=== PATIENT | female | born 1995 | race Caucasian/White ===

== ENCOUNTER 2020-12-16 19:47 | Inpatient (IN) | payer MEDICAID ==
[~2020-12-16] VITALS: Ht 170.2 cm; Wt 67.1 kg
[2020-12-16 19:49] VITALS: BP 98/56
--- NOTE | 2020-12-16 19:52 | NUR ---
to lobby a/w bed ambulatory
[2020-12-16 20:37] LABS: BASOPHILS % (AUTO) 0.1 % (0.0-2.0); EOSINOPHILS % (AUTO) 0.1 % (0.0-4.0); HEMATOCRIT 39.4 % (36-48); HEMOGLOBIN 13.6 g/dL (12.0-16.0); LYMPHOCYTES # (AUTO) 1.3 K/uL (2.5-16.5); LYMPHOCYTES % (AUTO) 12.7 % (20.5-51.1); MEAN CORPUSCULAR HEMOGLOBIN 31 pg (27-31); MEAN CORPUSCULAR HGB CONC 35 g/dL (33-37); MEAN CORPUSCULAR VOLUME 89.3 fL (80-94); MONOCYTES # (AUTO) 0.5 K/uL (0.8-1.0); NEUTROPHILS # (AUTO) 8.7 K/uL (1.8-7.7); NEUTROPHILS % (AUTO) 82.1 % (42.2-75.2); PLATELET COUNT (AUTO) 271 K/uL (140-450); RED BLOOD CELL COUNT(AUTO) 4.42 MIL/uL (4.20-5.40); RED CELL DISTRIBUTION WIDTH 13.5 % (11.6-13.7); WHITE BLOOD COUNT (AUTO) 10.6 K/uL (4.8-10.8)
[2020-12-16 20:50] LABS: ALBUMIN 3.7 g/dL (3.4-5.0); ANION GAP 12.4 (8-16); CARBON DIOXIDE 21.8 mmol/L (21-32); CREATININE 1.4 mg/dL (0.6-1.3); TOTAL BILIRUBIN 0.3 mg/dL (0.0-1.0)
[2020-12-16 20:54] LABS: POTASSIUM 7.2 mmol/L (3.5-5.1)
--- NOTE | 2020-12-16 21:01 | NUR ---
PT AMBULATED TO BED 4
--- NOTE | 2020-12-16 21:02 | NUR ---
patient complains of dizziness for 3 days, with n/v- patient vomited once. patient has had an issue with pottasium being high and low before. Patient also has weakness throughout the body, +ROM. Patient has not been able to get medicine due to recently moving. AAOx4. pmh: hypothyroidism, addisons disease NKA
[2020-12-16] MEDS ORDERED: DEXTROSE 50% 50 ML SYR IVP ONE (21:20)
[2020-12-16] MEDS ORDERED: ALBUTEROL 0.083% 2.5 MG/3 ML NEBU INH ONE (21:20)
[2020-12-16] MEDS ORDERED: CALCIUM GLUCONATE 10% 1000 MG/10 ML VIAL IVP ONE (21:20)
[2020-12-16] MEDS ORDERED: INSULIN REGULAR, HUMAN 100 UNIT/ML VIAL IVP ONE (21:20)
[2020-12-16] MEDS ORDERED: HYDROCORTISONE NA SUCC 100 MG/2 ML VIAL IV ONE (21:40)
--- NOTE | 2020-12-16 21:40 | NUR ---
RT AT BEDSIDE
[2020-12-16] MEDS ORDERED: CALCIUM CHLORIDE 10% 100 MG/ML SYR IVP ONE (22:25)
[2020-12-16] MEDS ORDERED: HYDROcodone/APAP 7.5/325 MG 1 TAB PO PRN (23:20)
[2020-12-16] MEDS ORDERED: ONDANSETRON 4 MG/2 ML VIAL IM/IVP PRN (23:20)
[2020-12-16] MEDS ORDERED: ACETAMINOPHEN 325 MG TAB PO PRN (23:20)
[2020-12-16] MEDS ORDERED: POTASSIUM CHLORIDE 10 MEQ TABER PO PRN (23:20)
[2020-12-16] MEDS ORDERED: ZOLPIDEM 5 MG TAB PO PRN (23:20)
[2020-12-16] MEDS ORDERED: guaiFENesin DM 200/20 MG-10 ML 10 ML UDC PO PRN (23:20)
[2020-12-16] MEDS ORDERED: DOCUSATE SODIUM 100 MG GELCAP PO PRN (23:20)
[2020-12-16] MEDS ORDERED: NACL 0.9% 2,000 ML IV ONE (23:25)
[2020-12-16] MEDS ORDERED: SODIUM ZIRCONIUM CYCLOSILICATE 10 GM POWD.PACK PO SCH (23:25)
[2020-12-16 23:40] LABS: PROTHROMBIN TIME 10.3 secs (10.8-13.4)
[2020-12-16 23:52] LABS: APPEARANCE,URINE CLEAR (CLEAR); BILIRUBIN,URINE NEGATIVE (NEGATIVE); BLOOD, URINE NEGATIVE (NEGATIVE); COLOR,URINE YELLOW (YELLOW); LEUKOCYTE ESTERASE ,URINE NEGATIVE (NEGATIVE); NITRITE, URINE NEGATIVE (NEGATIVE); UGLUCOSE NEGATIVE (NEGATIVE)
[2020-12-16 23:59] LABS: CHOL/HDL RATIO 3.3 (1-4.5); FREE T4 (FREE THYROXINE) 0.99 ng/dL (0.76-1.46); MAGNESIUM 1.4 mg/dL (1.8-2.4); PHOSPHORUS 4.7 mg/dL (2.5-4.9); THYROID STIMULATING HORMONE 5.13 uIU/mL (0.34-3.74)
[2020-12-17 00:02] LABS: BARBITURATE, URINE NEGATIVE ng/ml (NEG <=200); BENZODIAZEPINE, URINE NEGATIVE ng/mL (NEG <=200); CANNABINOID, URINE NEGATIVE ng/mL (NEG <=50); COCAINE, URINE NEGATIVE ng/mL (NEG <=300); OPIATE, URINE NEGATIVE ng/mL (NEG <=2000); PHENCYCLIDINE SCREEN,URINE NEGATIVE ng/mL (NEG <=25)
--- NOTE | 2020-12-17 00:07 | NUR ---
patient ambulated to the bathroom for urine collection. disconnected from leads.
--- NOTE | 2020-12-17 01:02 | NUR ---
patient BP 70s/40s. woke patient up-- AAOx4 and GCS 15 and ambulated patient to the bathroom with steady gait. and patient reported that her BP has always been that low.
[2020-12-17] MEDS: NACL 0.9% 1,000 ML IV SCH ×3 (02:25→23:43)
--- NOTE | 2020-12-17 02:50 | NUR ---
placed warm compress on patient IV as site felt painful to the touch and pressure.
[2020-12-17] MEDS ORDERED: PRED5TAB7 PO (04:56)
[2020-12-17] MEDS ORDERED: SYN.05 PO (04:56)
[2020-12-17] MEDS ORDERED: FLO.1 PO (04:56)
--- NOTE | 2020-12-17 04:57 | NUR ---
Note ariana in EDM - 12/17/20 at 0543 by MAI Patient appears to be resting comfortably in bed- low fowlers with eyes closed. Vital Signs within normal limits. Respirations even and unlabored. Patient has fluids running.
--- NOTE | 2020-12-17 04:57 | NUR ---
Patient appears to be resting comfortably in bed- low fowlers with eyes closed. Vital Signs within normal limits. Respirations even and unlabored. Patient has fluids running. Safety measures in place, placed on vehicle monitor technician, and will continue to monitor patient
--- NOTE | 2020-12-17 05:26 | NUR ---
patient BP 80s/40s. woke patient up-- AAOx4 and GCS 15.
[2020-12-17 06:46] LABS: HEMATOCRIT 34.6 % (36-48); HEMOGLOBIN 11.6 g/dL (12.0-16.0); LYMPHOCYTES # (AUTO) 0.9 K/uL (2.5-16.5); LYMPHOCYTES % (AUTO) 9.4 % (20.5-51.1); MEAN CORPUSCULAR HEMOGLOBIN 30 pg (27-31); MEAN CORPUSCULAR HGB CONC 34 g/dL (33-37); MEAN CORPUSCULAR VOLUME 90.3 fL (80-94); MONOCYTES # (AUTO) 0.2 K/uL (0.8-1.0); MONOCYTES % (AUTO) 2.5 % (1.7-9.3); NEUTROPHILS # (AUTO) 8.2 K/uL (1.8-7.7); NEUTROPHILS % (AUTO) 88.1 % (42.2-75.2); PLATELET COUNT (AUTO) 239 K/uL (140-450); RED BLOOD CELL COUNT(AUTO) 3.83 MIL/uL (4.20-5.40); RED CELL DISTRIBUTION WIDTH 13.3 % (11.6-13.7); WHITE BLOOD COUNT (AUTO) 9.3 K/uL (4.8-10.8)
[2020-12-17 07:10] LABS: ANION GAP 14.4 (8-16); CARBON DIOXIDE 19.4 mmol/L (21-32); CREATININE 1.1 mg/dL (0.6-1.3)
[2020-12-17 07:19] LABS: POTASSIUM 6.8 mmol/L (3.5-5.1)
--- NOTE | 2020-12-17 07:29 | NUR ---
IV removed, catheter intact and site benign. Applied folded 4x4 gauze and tape to stop bleeding.
--- NOTE | 2020-12-17 07:30 | NUR ---
Report and continuation of care received from INOCENCIA Sifuentes.
--- NOTE | 2020-12-17 07:30 | NUR ---
Pt report given to Mitchel PRO. Transfer of care at this time.
--- NOTE | 2020-12-17 07:35 | NUR ---
Patient ambulated to restroom with steady/even gait. New gown provided.
[2020-12-17] MEDS ORDERED: NACL 0.9% 1,000 ML IV SCH (07:55)
[2020-12-17] MEDS ORDERED: SODIUM ZIRCONIUM CYCLOSILICATE 10 GM POWD.PACK PO SCH (08:00)
[2020-12-17] MEDS: DEXAMETHASONE 4 MG/ML VIAL IVP SCH ×2 (08:34→21:46)
--- NOTE | 2020-12-17 08:55 | NUR ---
DR NAYLOR AT BEDSIDE EXAMINING PT
--- NOTE | 2020-12-17 09:00 | NUR ---
PT PROVIDED, WITH BREAKFAST TRAY EATING AT THIS TIME
[2020-12-17] MEDS: predniSONE 5 MG TAB PO SCH (09:06)
[2020-12-17] MEDS: LACTULOSE 20 GM/30 ML UDC PO SCH (09:06)
[2020-12-17] MEDS: PANTOPRAZOLE 40 MG TABEC PO SCH (09:06)
[2020-12-17] MEDS: FLUDROCORTISONE 0.1 MG TAB PO SCH (09:06)
[2020-12-17] MEDS: LEVOTHYROXINE 0.05 MG TAB PO SCH (09:07)
--- NOTE | 2020-12-17 10:22 | NUR ---
Received verbal consent from patient to speak with sister (Mabel) on telephone.
--- NOTE | 2020-12-17 11:49 | NUR ---
Dr. Arredondo is evaluating patient at bedside
[2020-12-17 13:41] LABS: ANION GAP 14.1 (8-16); CREATININE 0.9 mg/dL (0.6-1.3); POTASSIUM 5.1 mmol/L (3.5-5.1)
--- NOTE | 2020-12-17 14:30 | NUR ---
PATIENT APPEARS TO BE RESTING WITH EYES CLOSED, VSS RESPIRATIONS EVEN AND UNLABORED. ALL NEEDS MET AT THIS TIME.
--- NOTE | 2020-12-17 14:52 | NUR ---
PATIENT AMBULATED TO RESTROOM WITH STEADY GAIT
--- NOTE | 2020-12-17 15:17 | NUR ---
Lunch mealtray at bedside. All pt needs met.
--- NOTE | 2020-12-17 16:05 | NUR ---
CAMI (MOM) PROVIDED STATUS UPDATE. [phone]. Patient on telephone with Cami jeffries) at this time.
--- NOTE | 2020-12-17 16:30 | NUR ---
Patient ambulated to restroom with steady/even gait.
--- NOTE | 2020-12-17 17:34 | NUR ---
Patient resting with both eyes closed. laborer shellfish processing in place; VSS respirations even/unlabored. Bed locked in lowest position, side rails x 1, call light in reach.
--- NOTE | 2020-12-17 18:32 | NUR ---
Pt ambulated to restroom steady/even gait
--- NOTE | 2020-12-17 18:45 | NUR ---
Patient completing dinner mealtray at this time. All pt needs met.
--- NOTE | 2020-12-17 19:20 | NUR ---
Report and transfer of care endorsed to INOCENCIA Cheung.
--- NOTE | 2020-12-17 19:20 | NUR ---
REPORT RECEIVED FROM INOCENCIA NICK. ASSUMED CARE AT THIS TIME.
--- NOTE | 2020-12-17 19:25 | NUR ---
REPORT GIVEN TO INOCENCIA JI. TRANSFER OF CARE AT THIS TIME.
--- NOTE | 2020-12-17 19:50 | NUR ---
PATIENT LAYING IN BED LOCKED IN LOWEST POSITION WX2 SIDERAILS UP FOR PATIENT SAFETY. PATIENT DENIES FEELING ANY WEAKNESS, N/V, OR DIZZINESS AT THIS TIME. DENIES ANY PAIN. PATIENT HAS NS FLUIDS RUNNING AT 100ML/HR W 378ML VTBI. CONNECTED TO MONITOR W VSS, 91/44 BP. BREATHING EVEN AND UNLABORED. NAD NOTED, WILL CONTINUE TO MONITOR.
--- NOTE | 2020-12-17 19:54 | NUR ---
PATIENT REPORTS CALLED TO SIENA PRO. NO ANSWER. WILL CALL BACK.
--- NOTE | 2020-12-17 20:22 | NUR ---
CALLED INOCENCIA QUINTERO TO GIVE REPORT. PER INOCENCIA QUINTERO TO CALL BACK IN 10 MINUTES TO TAKE REPORT.
--- NOTE | 2020-12-17 20:54 | NUR ---
CALLED INOCENCIA QUINTERO TO GIVE REPORT FOR TRANSFER OF PATIENT CARE. AT THIS TIME. NO ANSWER. WILL CALL AGAIN.
--- NOTE | 2020-12-17 21:47 | NUR ---
CALLED INOCENCIA QUINTERO TO GIVE REPORT FOR TRANSFER OF PATIENT CARE. AT THIS TIME. NO ANSWER. WILL CALL AGAIN.
--- NOTE | 2020-12-17 21:53 | NUR ---
PATIENT LAYING IN BED LOCKED IN LOWEST POSITION W X2 SIDERAILS UP FOR PATIENT SAFETY. PATIENT TALKING ON THE PHONE, LAUGHING AND SMILING. CONNECTED TO MONITOR W VSS, BREATHING EVEN AND UNLABORED. NAD NOTED, WILL CONTINUE TO MONITOR.
--- NOTE | 2020-12-17 21:55 | NUR ---
Pt report given to INOCENCIA WOODRUFF. Transfer of care at this time.
--- NOTE | 2020-12-17 22:16 | NUR ---
Patient will be admitted to care of . Admited to TELE. Will go to room 127 B. Belongings list completed. Report to INOCENCIA WOODRUFF.
[2020-12-17 22:56] VITALS: BP 89/36
--- NOTE | 2020-12-17 23:00 | NUR ---
THIS IS AN ADMISSION OF A 25 YEAR OLD FEMALE PATIENT UNDER THE CARE OF DOCTOR NAYLOR FOR ADRENAL CRISIS. SHE RESIDES WITH FAMILY AT HOME WHERE SHE PLANS TO DISCHARGE TO. HAS HISTORY OF ANTOINETTE'S DISEASE, HYPOTHYROIDISM AND PREVIOUSLY HAD A LEG SURGERY A CHILD. SHE WAS GIVEN Schedulicity COVID19 VACCINE X2. RANJAN RODRIGUEZ RN
[2020-12-17 23:58] VITALS: BP 94/47
[2020-12-18 03:45] VITALS: BP 92/47
[2020-12-18] MEDS: NACL 0.9% 1,000 ML IV SCH (05:20)
[2020-12-18 06:43] LABS: ANION GAP 14.4 (8-16); CARBON DIOXIDE 21.7 mmol/L (21-32); CREATININE 0.9 mg/dL (0.6-1.3); POTASSIUM 5.1 mmol/L (3.5-5.1)
[2020-12-18 07:03] LABS: BASOPHILS % (AUTO) 0.1 % (0.0-2.0); HEMATOCRIT 29.6 % (36-48); HEMOGLOBIN 10.1 g/dL (12.0-16.0); LYMPHOCYTES # (AUTO) 1.3 K/uL (2.5-16.5); LYMPHOCYTES % (AUTO) 10.3 % (20.5-51.1); MEAN CORPUSCULAR HEMOGLOBIN 31 pg (27-31); MEAN CORPUSCULAR HGB CONC 34 g/dL (33-37); MEAN CORPUSCULAR VOLUME 89.9 fL (80-94); MONOCYTES # (AUTO) 0.4 K/uL (0.8-1.0); MONOCYTES % (AUTO) 2.9 % (1.7-9.3); NEUTROPHILS # (AUTO) 10.8 K/uL (1.8-7.7); NEUTROPHILS % (AUTO) 86.7 % (42.2-75.2); PLATELET COUNT (AUTO) 204 K/uL (140-450); RED BLOOD CELL COUNT(AUTO) 3.29 MIL/uL (4.20-5.40); RED CELL DISTRIBUTION WIDTH 13.4 % (11.6-13.7); WHITE BLOOD COUNT (AUTO) 12.5 K/uL (4.8-10.8)
--- NOTE | 2020-12-18 07:22 | NUR ---
HANDOFF WITH INOCENCIA LAMBERT. RANJAN RODRIGUEZ RN
--- NOTE | 2020-12-18 07:23 | NUR ---
RECEIVED REPORT FROM OPEN HEARTH HELPER RN. PATIENT IS IN BED RESTING. PATIENT IS ALERT AND ORIENTED X4. SHE IS ABLE TO VERBALIZE NEEDS TO STAFF. RESPIRATIONS ARE EVEN AND UNLABORED. PATIENT IS ON RA WITH O2 SAT AT 95%. PATIENT BP 91/45. ABD IS SOFT AND NON-TENDER WITH BOWEL SOUNDS PRESENT. PATIENT IS ON REGULAR DIET. PATIENT HAS IV TO L-FA, 20G WITH NS INFUSING AT 100ML/HR. IV IS PATENT AND INTACT. PATIENT HAS FULL ROM TO LOWER AND UPPER EXTREMITIES. SKIN IS WARM AND INTACT. PATIENT DENIES ANY PAIN. NO SIGNS OF DISTRESS NOTED. ALL NEEDS MET. CALL LIGHT WITHIN REACH. ALL SAFETY PRECAUTIONS IN PLACE.
--- NOTE | 2020-12-18 07:30 | NUR ---
Patient's Plan of Care was discussed and reviewed with INSTRUMENT INSPECTOR: TETO BLANCO. POC REVIEWED AND WILL BE CONTINUED.
[2020-12-18 08:00] VITALS: BP 91/45
--- NOTE | 2020-12-18 08:18 | NUR ---
PATIENT HAS BEEN SCREENED AND CATEGORIZED MODERATE NUTRITION RISK. PATIENT WILL BE SEEN WITHIN 3-5 DAYS OF ADMISSION. 12/19/20 12/21/[address]
[2020-12-18] MEDS ORDERED: SODIUM ZIRCONIUM CYCLOSILICATE 10 GM POWD.PACK PO SCH (09:15)
[2020-12-18] MEDS: PANTOPRAZOLE 40 MG TABEC PO SCH (09:19)
[2020-12-18] MEDS: LACTULOSE 20 GM/30 ML UDC PO SCH (09:20)
[2020-12-18] MEDS: LEVOTHYROXINE 0.05 MG TAB PO SCH (09:20)
[2020-12-18] MEDS: predniSONE 5 MG TAB PO SCH (09:20)
--- NOTE | 2020-12-18 09:20 | NUR ---
SCHEDULED MEDICATIONS ADMINISTERED PER DOCTOR ORDER. PATIENT TOLERATED WELL.
[2020-12-18] MEDS: FLUDROCORTISONE 0.1 MG TAB PO SCH (09:28)
[2020-12-18] MEDS: DEXAMETHASONE 4 MG/ML VIAL IVP SCH ×2 (09:34→20:45)
--- NOTE | 2020-12-18 09:34 | NUR ---
SCHEDULED IV MEDICATION ADMINISTERED BY INOCENCIA LAMBERT.
--- NOTE | 2020-12-18 10:01 | NUR ---
COVID SWAB COLLECTED. SENT TO LAB. AWAITING RESULTS.
--- NOTE | 2020-12-18 10:59 | NUR ---
PATIENT COVID RAPID TEST RESULTS VIEWED. PATIENT TEST RESULTS NEGATIVE.
[2020-12-18 11:08] LABS: MAGNESIUM 1.6 mg/dL (1.8-2.4); THYROID STIMULATING HORMONE 1.31 uIU/mL (0.34-3.74)
[2020-12-18 12:00] VITALS: BP 90/51
[2020-12-18 12:08] LABS: T4 (THYROXINE) 7.6 ug/dL (4.5-12.0)
[2020-12-18] MEDS ORDERED: MAGNESIUM OXIDE 400 MG TAB PO PRN (13:15)
[2020-12-18] MEDS: MIDODRINE 5 MG TAB PO SCH ×2 (13:30→18:35)
--- NOTE | 2020-12-18 13:45 | NUR ---
PATIENT DID NOT EAT LUNCH. STATED SHE DID NOT LIKE WHAT WAS BROUGHT. PATIENT ASKED FOR A TURKEY SANDWICH. PATIENT ATE WHOLE SANDWICH.
--- NOTE | 2020-12-18 15:44 | NUR ---
DC PLANNING PATIENT IS A 25 YEAR OLD FEMALE ADMITTED ON 12/16/2020 AT [facility]/ED DUE TO ADRENAL CRISIS. PATIENT WAS FEELINGS OF WEAKNESS AND DIZZINESS WHEN SHE GET UP AND WALK. SW MET WITH PATIENT AT BEDSIDE TO DISCUSS AND GATHER PATIENT'S COLLATERAL INFORMATION. PATIENT REPORTED THAT SHE JUST MOVED INTO [facility] FROM [facility], AND IS CURRENTLY LIVING WITH HER AUNT IZABELLA SCHMITZ . PER PATIENT SHE HAS FAMILY SUPPORT FORM HER EXTENDED FAMILY. PATIENT REPORTED BEEN ACTIVE AND INDEPENDENT AT HOME, AND AT WORK. PATIENT REPORTED NOT HAVING ADVANCE DIRECTIVES AND WAS INTERESTED ON GETTING INFORMATION PACKET PROVIDED BY SW AT THE TIME OF VISIT. PATIENT REPORTED NOT HAVING OR NEEDING DME AND NOT HAVING ANY ISSUES WITH GETTING OR TAKING ANY MEDICATIONS. PATIENT REPORTED BEEN ABLE TO MAKE HER OWN APPOINTMENTS WITH PRIMARY DOCTOR MD. BURR AT CLINIC NEAR HER HOME AFTER SHE DISCHARGES FROM [facility]. PATIENT STATED THAT HER AUNT IZABELLA WILL BE ASSISTING HER WITH TRANSPORTATION BACK HOME WHEN READY FOR DISCHARGE. SW WILL FOLLOW UP WITH PATIENT NEEDED.
[2020-12-18 16:00] VITALS: BP 103/51
--- NOTE | 2020-12-18 19:25 | NUR ---
GAVE REPORT TO GRIP ASSEMBLER RN. PATIENT IS IN BED, RESTING. NO SIGNS OF DISTRESS NOTED OR REPORTED. RESPIRATIONS ARE EVEN AND UNLABORED. CALL LIGHT WITHIN REACH. ALL SAFETY PRECAUTIONS IN PLACE. BED IN LOWEST POSITION.
[2020-12-18 20:42] VITALS: BP 105/46
[2020-12-19 00:22] VITALS: BP 111/48
[2020-12-19 04:27] VITALS: BP 95/60
[2020-12-19 06:04] LABS: HEMATOCRIT 29.9 % (36-48); HEMOGLOBIN 10.1 g/dL (12.0-16.0); LYMPHOCYTES % (AUTO) 18.9 % (20.5-51.1); MEAN CORPUSCULAR HEMOGLOBIN 31 pg (27-31); MEAN CORPUSCULAR HGB CONC 34 g/dL (33-37); MONOCYTES # (AUTO) 0.4 K/uL (0.8-1.0); MONOCYTES % (AUTO) 4.1 % (1.7-9.3); NEUTROPHILS # (AUTO) 8.1 K/uL (1.8-7.7); PLATELET COUNT (AUTO) 222 K/uL (140-450); RED BLOOD CELL COUNT(AUTO) 3.25 MIL/uL (4.20-5.40); RED CELL DISTRIBUTION WIDTH 13.8 % (11.6-13.7); WHITE BLOOD COUNT (AUTO) 10.5 K/uL (4.8-10.8)
[2020-12-19 06:23] LABS: ANION GAP 11.3 (8-16); CARBON DIOXIDE 25.5 mmol/L (21-32); CREATININE 0.8 mg/dL (0.6-1.3); POTASSIUM 4.8 mmol/L (3.5-5.1)
[2020-12-19] MEDS: MIDODRINE 5 MG TAB PO SCH ×2 (07:32→12:24)
--- NOTE | 2020-12-19 07:34 | NUR ---
HANDOFF WITH INOCENCIA CHEUNG. RANJAN RODRIGUEZ RN
--- NOTE | 2020-12-19 07:35 | NUR ---
RECEIVED REPORT FROM BRAZER RESISTANCE NURSE. PATIENT LYIGN DOWN IN BED. NO DISTRESS NOTED. DENIES ANY PAIN. CONTINUES TO BE SINUS CHANA ON TELE 45-50'S. IV SITE INTACT, PATENT, AND INFUSING IVF PER MD ORDERS. SKIN INTACT. REVIEWED PLAN OF CARE WITH PATIENT. PATIENT VERBALIZED UNDERSTANDING. SAFETY MEASURES IN PLACE, CALL LIGHT WITHIN REACH. WILL CONTINUE TO MONITOR.
[2020-12-19 08:00] VITALS: BP 123/61
[2020-12-19] MEDS: LEVOTHYROXINE 0.05 MG TAB PO SCH (08:37)
[2020-12-19] MEDS: DEXAMETHASONE 4 MG/ML VIAL IVP SCH (08:38)
[2020-12-19] MEDS: predniSONE 5 MG TAB PO SCH (08:39)
[2020-12-19] MEDS: PANTOPRAZOLE 40 MG TABEC PO SCH (08:39)
[2020-12-19] MEDS: FLUDROCORTISONE 0.1 MG TAB PO SCH (08:40)
--- NOTE | 2020-12-19 08:48 | NUR ---
SCHEDULED MEDS WERE GIVEN. WILL CONTNUE TO MONITOR.
[2020-12-19] MEDS ORDERED: FUROSEMIDE 40 MG TAB PO SCH (11:00)
[2020-12-19 12:00] VITALS: BP 110/43
[2020-12-19] MEDS ORDERED: SYN.05 PO (12:55)
[2020-12-19] MEDS ORDERED: PANT40EC56 PO (12:55)
[2020-12-19] MEDS ORDERED: PRO5 PO (12:55)
[2020-12-19] MEDS ORDERED: FLO.1 PO (12:55)
[2020-12-19] MEDS ORDERED: PRED5TAB7 PO (12:55)
--- NOTE | 2020-12-19 13:30 | NUR ---
DISCHARGE INSTRUCTIONS PROVIDED TO PATIENT IN PREFERRED LANGUAGE OF EGYPTIAN. INSTRUCTIONS ON NEW/CHANGED MEDCIATIONS REGIMEN AND SIDE EFFECTS, FOLLOW-UP WITH PCP AND HUSBANDRY PERSON AND DISEASE PROCESS MANAGEMENT OF HYPTHYROIDISM AND ADDISIONS DISEASE. ANSWERED ALL OF PATIENT'S QUESTIONS REGARDING DISCHARGE. IV SITE REMOVED WITH MINIMAL BLOOD AND LUMEN COMPLETELY INTACT. ID BANDS REMOVED. ESCORTED PATIENT DOWN TO LOBBY VIA STEADY AMBULATION. PATIENT DISCAHRGED AT THIS TIME IN STABLE CONDITION.
== END 2020-12-19 13:30 | disposition home or self-care (01) | DRG 424 ==
LOC: MED 19:47 → MTU 22:12 → MMU 12-17 18:33
PROVIDERS: ADMIT Family Medicine; ATTEND Family Medicine
DX: E27.2 Addisonian crisis (principal); N17.0 Acute kidney failure with tubular necrosis; G93.41 Metabolic encephalopathy; E87.1 Hypo-osmolality and hyponatremia; E87.5 Hyperkalemia; E03.9 Hypothyroidism, unspecified; E27.1 Primary adrenocortical insufficiency; E83.42 Hypomagnesemia; E86.0 Dehydration; Z20.822 Contact with and (suspected) exposure to COVID-19; Z79.899 Other long term (current) drug therapy
CPT/HCPCS: 36415; 70450; 71045; 80048; 80053; 80305; 81003; 82150; 83036; 83690; 83735; 83880; 84100; 84436; 84439; 84443; 84479; 84484; 85025; 85610; 85730; 87081; 93005; 94640; 96361; 96374; 96375; 99285; J1100; J1720; J1815; J7512; J7613

== ENCOUNTER 2023-09-05 15:34 | Inpatient (IN) | payer MEDICAID, OTHER ==
[~2023-09-05] VITALS: Ht 170.2 cm; Wt 59.0 kg
[~2023-09-05 15:34] MED LIST: FLO.1 PO; PANT40EC56 PO; PRED5TAB7 PO; PRO5 PO; SYN.05 PO
[2023-09-05 15:46] VITALS: BP 79/50; PULSE 79; RESP 18; TEMP 97.3; O2SAT 99
[2023-09-05] MEDS: NACL 0.9% 1,000 ML IV SCH ×2 (16:33→19:07)
[2023-09-05 16:37] LABS: BASOPHILS % (AUTO) 0.8 % (0.0-2.0); EOSINOPHILS # (AUTO) 0.2 K/uL (0-0.4); HEMATOCRIT 34.5 % (36-48); HEMOGLOBIN 11.7 g/dL (12.0-16.0); LYMPHOCYTES # (AUTO) 3.3 K/uL (2.5-16.5); LYMPHOCYTES % (AUTO) 55.7 % (20.5-51.1); MEAN CORPUSCULAR HEMOGLOBIN 31 pg (27-31); MEAN CORPUSCULAR HGB CONC 34 g/dL (33-37); MEAN CORPUSCULAR VOLUME 90.6 fL (80-94); MONOCYTES # (AUTO) 0.4 K/uL (0.8-1.0); MONOCYTES % (AUTO) 6.6 % (1.7-9.3); NEUTROPHILS # (AUTO) 1.9 K/uL (1.8-7.7); NEUTROPHILS % (AUTO) 32.9 % (42.2-75.2); PLATELET COUNT (AUTO) 254 K/uL (140-450); RED CELL DISTRIBUTION WIDTH 13.3 % (11.6-13.7); WHITE BLOOD COUNT (AUTO) 5.8 K/uL (4.8-10.8)
[2023-09-05] MEDS: HYDROCORTISONE NA SUCC 100 MG/2 ML VIAL IV ONE ×2 (16:39→19:01)
[2023-09-05 16:44] LABS: CARBON DIOXIDE 21.1 mmol/L (21-32); CREATININE 1.6 mg/dL (0.6-1.3); POTASSIUM 5.1 mmol/L (3.5-5.1)
[2023-09-05 16:51] LABS: INR 1.16 (0.8-1.2); PARTIAL THROMBOPLASTIN TIME 37.3 secs (22-35.6); PROTHROMBIN TIME 12.1 secs (10.8-13.4)
[2023-09-05 16:52] LABS: LACTIC ACID < 0.3 mmol/L (0.4-2.0)
[2023-09-05 17:01] LABS: ALANINE AMINOTRANSFERASE 28 U/L (12-78); ALBUMIN 4.3 g/dL (3.4-5.0); ALKALINE PHOSPHATASE 42 U/L (50-136); ASPARTATE AMINOTRANSFERASE 49 U/L (15-37); BILIRUBIN,DIRECT 0.1 mg/dL (0.0-0.3); THYROID STIMULATING HORMONE 201.35 uIU/mL (0.34-3.74); TOTAL BILIRUBIN 0.6 mg/dL (0.0-1.0); TOTAL PROTEIN, SERUM 8.3 g/dL (6.4-8.2)
[2023-09-05 17:40] LABS: APPEARANCE,URINE CLEAR (CLEAR); BILIRUBIN,URINE NEGATIVE (NEGATIVE); BLOOD, URINE NEGATIVE (NEGATIVE); COLOR,URINE YELLOW (YELLOW); LEUKOCYTE ESTERASE ,URINE NEGATIVE (NEGATIVE); NITRITE, URINE NEGATIVE (NEGATIVE); PROTEIN,URINE NEGATIVE (NEGATIVE); UGLUCOSE NEGATIVE (NEGATIVE); UROBILINOGEN,URINE 0.2 EU/dL (0.2 - 1)
[2023-09-05] MEDS ORDERED: NACL 0.9% 1,000 ML IV ONE (17:40)
[2023-09-05] MEDS: NACL 0.9% 1,000 ML IV ONE ×2 (17:44→19:00)
[2023-09-05] MEDS: LEVOTHYROXINE 0.1 MG TAB PO ONE (17:48)
[2023-09-05] MEDS ORDERED: ONDANSETRON 4 MG/2 ML VIAL IVP PRN (17:55)
[2023-09-05] MEDS ORDERED: HYDROCORTISONE NA SUCC 100 MG/2 ML VIAL ONE (18:39)
[2023-09-05] MEDS: LEVOTHYROXINE SODIUM 100 MCG VIAL IV ONE (18:45)
[2023-09-05] MEDS: MIDODRINE 5 MG TAB PO SCH (19:07)
[2023-09-05 19:57] VITALS: O2SAT 97
[2023-09-05] MEDS: HYDROCORTISONE NA SUCC 100 MG/2 ML VIAL IV SCH (21:28)
[2023-09-05 21:47] VITALS: O2SAT 99
[2023-09-05 22:35] VITALS: BP 92/47; PULSE 68; RESP 18; TEMP 97.3; O2SAT 99
[2023-09-05 23:00] VITALS: PULSE 79
[2023-09-06] VITALS: PULSE 68
[2023-09-06] MEDS: NACL 0.9% 1,000 ML IV ONE ×2 (00:43→00:44)
[2023-09-06] MEDS: FLUDROCORTISONE 0.1 MG TAB PO SCH ×2 (03:07→08:45)
[2023-09-06] MEDS: MIDODRINE 5 MG TAB PO SCH (03:08)
[2023-09-06 04:00] VITALS: BP 91/48; PULSE 73; PULSE 74; RESP 18; TEMP 98; O2SAT 100
[2023-09-06 06:48] LABS: BASOPHILS % (AUTO) 0.1 % (0.0-2.0); HEMATOCRIT 27.7 % (36-48); HEMOGLOBIN 9.7 g/dL (12.0-16.0); LYMPHOCYTES # (AUTO) 1.6 K/uL (2.5-16.5); LYMPHOCYTES % (AUTO) 23.5 % (20.5-51.1); MEAN CORPUSCULAR HEMOGLOBIN 32 pg (27-31); MEAN CORPUSCULAR HGB CONC 35 g/dL (33-37); MEAN CORPUSCULAR VOLUME 91.5 fL (80-94); MONOCYTES # (AUTO) 0.1 K/uL (0.8-1.0); MONOCYTES % (AUTO) 1.2 % (1.7-9.3); NEUTROPHILS % (AUTO) 75.2 % (42.2-75.2); PLATELET COUNT (AUTO) 198 K/uL (140-450); RED BLOOD CELL COUNT(AUTO) 3.03 MIL/uL (4.20-5.40); RED CELL DISTRIBUTION WIDTH 13.5 % (11.6-13.7); WHITE BLOOD COUNT (AUTO) 6.6 K/uL (4.8-10.8)
[2023-09-06 07:12] LABS: ALBUMIN 3.2 g/dL (3.4-5.0); ANION GAP 14.8 (8-16); CALCIUM 7.3 mg/dL (8.5-10.1); CARBON DIOXIDE 18.4 mmol/L (21-32); CREATININE 1.2 mg/dL (0.6-1.3); MAGNESIUM 1.5 mg/dL (1.8-2.4); POTASSIUM 5.2 mmol/L (3.5-5.1); TOTAL BILIRUBIN 0.3 mg/dL (0.0-1.0); TOTAL PROTEIN, SERUM 6.4 g/dL (6.4-8.2)
[2023-09-06 08:00] VITALS: BP 100/46; PULSE 59; PULSE 62; PULSE 68; RESP 18; TEMP 97.2; O2SAT 100; O2SAT 99
[2023-09-06] MEDS: LEVOTHYROXINE SODIUM 100 MCG VIAL IV SCH (08:52)
[2023-09-06] MEDS: MEDS-TO-BEDS MC SCH (08:53)
[2023-09-06 12:00] VITALS: BP 93/43; PULSE 66; RESP 18; TEMP 97.6; O2SAT 95
[2023-09-06] MEDS: SODIUM POLYSTYRENE 15 GM/60 ML UDBTL PO SCH (12:51)
[2023-09-06] MEDS: MAG SULF 2000 MG/WATER PREMIX 50 ML IV SCH (13:00)
[2023-09-06 16:11] VITALS: BP 93/43; PULSE 66; RESP 18; TEMP 97.6
== END 2023-09-06 16:55 | disposition home or self-care (01) | DRG 424 ==
LOC: MED 15:34 → MTU 17:56
PROVIDERS: ADMIT Hospitalist; ATTEND Hospitalist
DX: E27.2 Addisonian crisis (principal); N17.9 Acute kidney failure, unspecified; I95.9 Hypotension, unspecified; E03.9 Hypothyroidism, unspecified; E87.1 Hypo-osmolality and hyponatremia; Z79.899 Other long term (current) drug therapy; Z91.148 Patient's other noncompliance with medication regimen for other reason
CPT/HCPCS: 36415; 71045; 80048; 80053; 80076; 81003; 82533; 83605; 83735; 84439; 84443; 84484; 85025; 85610; 85730; 87040; 87081; 87086; 93005; 96361; 96374; 96375; 99285; 99291; J1720; J3475